=== PATIENT | female | born 1960 | race Two or more races ===

== ENCOUNTER 2018-04-03 08:02 | Day surgery (SDC) | payer OTHER ==
[2018-04-03] MEDS ORDERED: Lactated Ringer's 500 ML IV ONE (08:43)
[2018-04-03] MEDS ORDERED: Propofol 10 mg/ml Inj (20 ML) ONE (10:48)
[2018-04-03 11:14] VITALS: TEMP 97.8
[2018-04-03 11:34] VITALS: BP 126/65; PULSE 61; RESP 19; O2SAT 100
== END 2018-04-03 11:52 | disposition home or self-care (01) ==
LOC: H.ENDO 08:02
PROVIDERS: ATTEND Internal Medicine Gastroenterology
DX: Z12.11 Encounter for screening for malignant neoplasm of colon (principal); E11.9 Type 2 diabetes mellitus without complications; E78.5 Hyperlipidemia, unspecified; I10 Essential (primary) hypertension; K64.8 Other hemorrhoids; K57.30 Diverticulosis of large intestine without perforation or abscess without bleeding
CPT/HCPCS: 45378; 82948; J2001; J2704; J7120